=== PATIENT | male | born 1990 | race Caucasian/White ===

== ENCOUNTER 2020-08-15 01:49 | Emergency (ER) | payer MEDICAID ==
[2020-08-15 02:41] LABS: BASO # 0.02 (0.02-0.10); EOS # 0.03 (0.04-0.40); EOS % 0.1 % (0.0-4.0); HEMOGLOBIN 17.5 g/dL (13.5-18.0); LYMPH# 1.79 (1.50-4.00); MEAN CELL VOLUME 89 fl (78-100); MEAN CORPUSCULAR HEMOGLOBIN 31 pg (27-31); MEAN CORPUSCULAR HGB CONC 34 g/dL (33-37); MONO # 1.34 (0.20-0.80); NEU # 17.02 (1.40-6.50); PLATELET COUNT 251 K/mm3 (130-400); RED BLOOD COUNT 5.72 M/mm3 (4.20-5.60); RED CELL DISTRIBUTION WIDTH 13.7 % (11.5-14.5)
[2020-08-15 02:46] LABS: WHITE BLOOD COUNT 20.2 K/mm3 (4.8-10.8)
[2020-08-15 02:50] LABS: POTASSIUM 4.5 mmol/L (3.5-5.1)
[2020-08-15 02:51] LABS: CALCIUM 10.6 mg/dL (8.3-10.5)
[2020-08-15 02:53] LABS: TOTAL PROTEIN 8.7 g/dL (6.4-8.3)
[2020-08-15 03:09] LABS: ALBUMIN 5.5 g/dL (3.5-5.0)
[2020-08-15 03:13] LABS: TOTAL BILIRUBIN 2.7 mg/dL (0.2-1.2)
[2020-08-15 06:19] LABS: URINE APPEARANCE HAZY; URINE BILIRUBIN NEGATIVE (NEGATIVE); URINE BLOOD 50 ery/uL (NEGATIVE); URINE COLOR YELLOW; URINE GLUCOSE NEGATIVE (NEGATIVE); URINE KETONE 3+ (NEGATIVE); URINE LEUKOCYTE ESTERASE NEGATIVE (NEGATIVE); URINE MUCUS PRESENT (NOT PRESENT); URINE NITRATE NEGATIVE (NEGATIVE); URINE PROTEIN(semi-quant) TRACE mg/dL (NEGATIVE); URINE UROBILINOGEN NORMAL (NORMAL); URINE WBC 0-1 /hpf (0-3)
[2020-08-15 07:08] LABS: ACETAMINOPHEN < 1 ug/mL
[2020-08-15] MEDS ORDERED: ZOFRAN ODT4 MG PO (09:50)
[2020-08-15] MEDS ORDERED: FAMOTIDINE20 MG PO (09:50)
[2020-08-15 09:58] VITALS: BP 119/74
== END 2020-08-15 10:10 | disposition home or self-care (01) ==
LOC: ED 01:49
PROVIDERS: Family Medicine
DX: N17.9 Acute kidney failure, unspecified (principal); E86.0 Dehydration; F19.10 Other psychoactive substance abuse, uncomplicated; F17.210 Nicotine dependence, cigarettes, uncomplicated; Z20.822 Contact with and (suspected) exposure to COVID-19
CPT/HCPCS: J3490; J7030